=== PATIENT | male | born 1985 | race Caucasian/White ===

== ENCOUNTER 2018-10-11 22:36 | Emergency (ER) | payer SELFPAY ==
[2018-10-11 22:36] VITALS: BMI 22.6
[2018-10-11 22:41] VITALS: TEMP 98.7
--- NOTE | 2018-10-12 04:09 | ED PDOC ---
HPI: Psych/Substance Abuse Time Seen by Provider: 10/11/18 22:54 Chief Complaint (Nursing): Alcohol Ingestion Chief Complaint (Provider): Alcohol abuse, denies complaints History Per: Patient History/Exam Limitations: no limitations Onset/Duration Of Symptoms: Days Current Symptoms Are (Timing): Still Present Modifying Factor(s): Alcohol Associated Symptoms: denies: Anger, Anxiety, Agitation, Depression, Paranoia, Suicidal Thoughts, Suicidal Plan Involuntary Hold By: None Additional Complaint(s): 33 yo male with no medical problems brought in by EMS for evaluation of alcohol abuse. Pt. was found sleeping outside. Pt denies complaints. Calm and cooperative in ER. Past Medical History Reviewed: Historical Data, Nursing Documentation, Vital Signs Vital Signs: Last Vital Signs Temp 98.7 F 10/11/18 22:39 Pulse 80 10/12/18 02:35 Resp 20 10/12/18 02:35 BP 150/73 10/12/18 02:35 Pulse Ox 96 10/12/18 02:35 - Medical History PMH: No Chronic Diseases - Surgical History Surgical History: No Surg Hx - Family History Family History: States: Unknown Family Hx - Living Arrangements Living Arrangements: With Family - Social History Current smoker - smoking cessation education provided: No - Immunization History Hx Tetanus Toxoid Vaccination: No Hx Influenza Vaccination: No Hx Pneumococcal Vaccination: No - Home Medications Home Medications: Ambulatory Orders Medication Instructions Recorded No Known Home Med 04/22/14 - Allergies Allergies/Adverse Reactions: Allergies Allergy/AdvReac Type Severity Reaction Status Date / Time No Known Allergies Allergy Verified 02/06/17 12:29 Review of Systems ROS Statement: Except As Marked, All Systems Reviewed And Found Negative Constitutional: Negative for: Fever, Chills, Sweats Cardiovascular: Negative for: Chest Pain, Palpitations Respiratory: Negative for: Cough, Shortness of Breath Musculoskeletal: Negative for: Neck Pain, Shoulder Pain, Back Pain Physical Exam - Reviewed Nursing Documentation Reviewed: Yes Vital Signs Reviewed: Yes - Physical Exam Appears: Positive for: Well, Non-toxic, No Acute Distress Head Exam: Positive for: ATRAUMATIC, NORMAL INSPECTION, NORMOCEPHALIC Skin: Positive for: Normal Color, Warm, DRY Eye Exam: Positive for: Normal appearance ENT: Positive for: Normal ENT Inspection Neck: Positive for: Normal, Painless ROM Cardiovascular/Chest: Positive for: Regular Rate, Rhythm Respiratory: Positive for: Normal Breath Sounds. Negative for: Accessory Muscle Use, Respiratory Distress Gastrointestinal/Abdominal: Positive for: Normal Exam, Soft. Negative for: Tenderness Back: Positive for: Normal Inspection Extremity: Positive for: Normal ROM Neurologic/Psych: Positive for: Alert, Oriented - ECG O2 Sat by Pulse Oximetry: 96 Pulse Ox Interpretation: Normal Disposition - Clinical Impression Clinical Impression: Alcohol abuse with intoxication - Disposition Disposition Time: 06:14 Condition: STABLE Instructions: Alcohol Abuse and Alcoholism (DC) Forms: [facility] ([place]inidadian) Print Language: STATELESS
[2018-10-12 06:19] VITALS: BP 110/60; PULSE 88; RESP 24; O2SAT 100
== END 2018-10-12 06:41 | disposition home or self-care (01) ==
LOC: H.ER 22:36
DX: F10.129 Alcohol abuse with intoxication, unspecified (principal)